=== PATIENT | female | born 1970 | race American Indian/Alaskan Native ===

== ENCOUNTER 2017-03-25 13:22 | Outpatient (CLI) | payer BC ==
--- NOTE | 2017-03-25 14:17 | Mammography Report ---
Bilateral mammogram: Compared to 02/06/15. CAD study utilized. Findings: Predominance adipose tissue bilaterally. Benign calcifications right breast. No significant interval change. No microcalcification. Benign axillary nodes. Focal ill-defined asymmetry upper right breast. Impression: Focal ill-defined asymmetry upper right breast. Recommend spot mag and if necessary sonographic examination. BI-RADS CATEGORY: 0 = Needs additional imaging evaluation ACR BI-RADS MAMMOGRAPHIC CODES: 0 = Needs additional imaging evaluation; 1 = Negative; 2 = Benign; 3 = Probably benign; 4 = Suspicious; 5 = Malignant; 6 = Known biopsy-proven malignancy COMMENT: 1. Dense breast tissue, i.e., adenosis, fibrocystic changes, etc., may obscure an underlying neoplasm. 2. Approximately 10% of cancers are not detected with mammography. 3. A negative mammography report should not delay biopsy if a clinically suspicious mass is present. COMMENT: Patient follow-up letters are generated in [employer].
== END 2017-03-25 13:23 | disposition home or self-care (01) ==
LOC: MAMMO 13:22
PROVIDERS: ATTEND Internal Medicine
DX: Z12.31 Encounter for screening mammogram for malignant neoplasm of breast (principal)
CPT/HCPCS: 77067; G0202

== ENCOUNTER 2017-04-29 10:32 | Outpatient (CLI) | payer BC ==
--- NOTE | 2017-04-29 11:12 | Mammography Report ---
Right mammogram: Whole breast lateral and spot compression views are obtained for an area of asymmetry described on recent screening exam in March. The asymmetry however disappears with compression and the findings are unchanged compared to prior study in 2015. Impression: No new asymmetry. Recommendation: Annual mammogram followup. BI-RADS CATEGORY: 1 = Negative ACR BI-RADS MAMMOGRAPHIC CODES: 0 = Needs additional imaging evaluation; 1 = Negative; 2 = Benign; 3 = Probably benign; 4 = Suspicious; 5 = Malignant; 6 = Known biopsy-proven malignancy COMMENT: 1. Dense breast tissue, i.e., adenosis, fibrocystic changes, etc., may obscure an underlying neoplasm. 2. Approximately 10% of cancers are not detected with mammography. 3. A negative mammography report should not delay biopsy if a clinically suspicious mass is present.
== END 2017-04-29 10:33 | disposition home or self-care (01) ==
LOC: MAMMO 10:32
PROVIDERS: ATTEND Obstetrics & Gynecology
DX: R92.8 Other abnormal and inconclusive findings on diagnostic imaging of breast (principal)
CPT/HCPCS: G0206-RT

== ENCOUNTER 2018-05-19 10:10 | Outpatient (CLI) | payer OTHER ==
--- NOTE | 2018-05-19 16:32 | Mammography Report ---
BILATERAL DIGITAL SCREENING MAMMOGRAM with CAD : 05/19/18 10:10:00 CLINICAL: Routine screening. COMPARISON:03/25/17 FINDINGS: The breasts are heterogeneously dense, which may obscure small Masses. Two heavily calcified right benign masses are unchanged. A new partially circumscribed right lower outer mass a few calcifications requires additional imaging. No architectural distortion or suspicious ossifications. The left breast is negative. IMPRESSION: A right lower outer mass requiring further imaging. BI-RADS CATEGORY: 0--Needs Additional Imaging RECOMMENDATION: Recall for right ML and spot magnification views and right breast ultrasound. COMMENT: Patient follow-up letters are generated by our [employer] application.
== END 2018-05-19 10:11 | disposition home or self-care (01) ==
LOC: MAMMO 10:10
PROVIDERS: ATTEND Internal Medicine
DX: Z12.31 Encounter for screening mammogram for malignant neoplasm of breast (principal)
CPT/HCPCS: 77067

== ENCOUNTER 2020-06-13 10:28 | Outpatient (CLI) | payer OTHER ==
--- NOTE | 2020-06-13 15:44 | Mammography Report ---
DIGITAL SCREENING MAMMOGRAM WITH CAD, 06/13/2020 INDICATION: Routine screening mammography. TECHNIQUE: Digital bilateral 2D mammography was obtained in the craniocaudal and mediolateral obliq ue projections. This examination was interpreted with the benefit of Computer-Aided Detection analysi s. COMPARISON: Prior mammograms 06/02/2019 and 05/19/2018 FINDINGS: Breast Density: The breasts are heterogeneously dense, which may obscure small masses. There is no evidence of dominant mass, suspicious calcifications or architectural distortion in eithe r breast. There is stable benign postsurgical change noted in the upper outer quadrant of the right b reast, stable nodular densities in the right breast, and stable benign-appearing calcifications in th e right breast. There has been no significant change compared with the prior examinations. IMPRESSION: Follow up recommendation: Routine yearly BI-RADS Category 2: Benign. A "normal" or negative report should not discourage follow up or biopsy of a clinically significant f inding. A written summary of these findings will be mailed to the patient. The patient will be entered into a mammography reporting system which will generate a reminder letter for the patient's next appointmen t at the appropriate interval. The [employer] recommends yearly mammograms starting at age 40 and continuing as l [place] as a woman is in good health. Breast MRI is recommended for women with an approximate 20-25% or greater lifetime risk of breast cancer, including women with a strong family history of breast or ova vincent cancer or who have been treated for Hodgkin's disease. Signer Name: Charu Pinto MD Signed: 06/13/2020 3:40 PM Workstation Name: [id number]
== END 2020-06-13 10:29 | disposition home or self-care (01) ==
LOC: MAMMO 10:28
PROVIDERS: ATTEND Internal Medicine
DX: Z12.31 Encounter for screening mammogram for malignant neoplasm of breast (principal)
CPT/HCPCS: 77067

== ENCOUNTER 2021-07-01 13:02 | Outpatient (CLI) | payer OTHER ==
--- NOTE | 2021-07-01 14:05 | Mammography Report ---
BILATERAL DIGITAL SCREENING MAMMOGRAM WITH CAD HISTORY: Screening mammogram. History of benign right breast surgery. TECHNIQUE: Routine digital mammographic imaging performed. This examination was interpreted with lit snow benefit of Computer-aided Detection analysis. COMPARISON: 06/13/2020, 06/02/2019, 06/02/2019, 05/19/2018. FINDINGS: Breast Density: scattered fibroglandular appearance of the breast tissue. Digital CC and MLO views demonstrate no mammographic evidence of malignancy. Stable benign-appearing right upper outer breast postsurgical change and right central and superior breast coarse calcificat ions. IMPRESSION: No mammographic evidence of malignancy. If the clinical examination remains stable, recommend bilate ral mammogram in approximately one year. BIRADS 2: Benign Finding(s). FURTHER INFORMATION: According to the [employer], yearly mammograms are recommend ed starting at age 40 and continuing as long as a woman is in good health. Clinical Breast Exams shou ld be part of a periodic health exam-about every 3 years for women in their 20s and 30s and every yea r for women 40 and over. Breast self exam is an option for women starting in their 20s. Any breast ch ron noted on a breast self exam should be reported promptly to the patient's healthcare provider. Br east MRI is recommended for women with an approximately 20-25% or greater lifetime risk of breast can cer, including women with a strong family history of breast or ovarian cancer and women who have been treated for Hodgkin's disease. A negative Mammography report should not discourage follow up or biopsy of a clinically significant f inding and/or abnormality. Dense breast tissue may obscure small neoplasms. The patient will be entered into a reminder system with a target due date for the next screening mamm ogram. Signer Name: Leon Hairston MD Signed: 07/01/2021 2:01 PM Workstation Name: [id number]
== END 2021-07-01 13:03 | disposition home or self-care (01) ==
LOC: MAMMO 13:02
PROVIDERS: ATTEND Internal Medicine
DX: Z12.31 Encounter for screening mammogram for malignant neoplasm of breast (principal)
CPT/HCPCS: 77067